=== PATIENT | female | born 2005 | race Two or more races ===

== ENCOUNTER 2024-11-03 11:25 | Outpatient (CLI) | payer MEDICAID, SELFPAY ==
--- NOTE | 2024-11-03 11:30 | XR_ITS ---
Examination: Biophysical profile, ultrasound Date and time of exam: November 03, 2024 1136 hours Onset lower pelvic pain today Technique: Multiple transabdominal sonographic images of the pelvis abdomen obtained. Attention is directed to the breathing movement, gross body movement, amniotic fluid volume and tone. Findings: Amniotic fluid index 9.4 cm Total biophysical profile is 8 of 8. breathing movement is 2. Gross body movement is 2. tone is 2. Qualitative amniotic fluid volume is 2 Impression: Biophysical profile is 8 of 8.
[2024-11-03 11:36] VITALS: BP 117/75; PULSE 79
[2024-11-03 11:37] VITALS: BMI 32.3
== END 2024-11-03 13:05 | disposition home or self-care (01) ==
LOC: S4S1 11:27 → S4SX 11:29
PROVIDERS: Referring Provider Advanced Practice Midwife; Visit Provider Advanced Practice Midwife
DX: Z34.03 Encounter for supervision of normal first pregnancy, third trimester (principal); Z36.9 Encounter for antenatal screening, unspecified; Z3A.40 40 weeks gestation of pregnancy
CPT/HCPCS: 59025; 76819

== ENCOUNTER 2024-11-05 17:10 | Observation (INO) | payer MEDICAID, SELFPAY ==
[2024-11-05 17:39] VITALS: BP 122/78; PULSE 83
[2024-11-05 17:47] VITALS: BMI 32.5
== END 2024-11-05 18:22 | disposition home or self-care (01) ==
PROVIDERS: Admitting Provider Advanced Practice Midwife; Visit Provider Advanced Practice Midwife
DX: O47.1 False labor at or after 37 completed weeks of gestation (principal); Z3A.40 40 weeks gestation of pregnancy
CPT/HCPCS: 59899

== ENCOUNTER 2024-11-10 01:56 | Inpatient (IN) | payer MEDICAID, SELFPAY ==
[2024-11-10] VITALS (96 sets, daily range): BP systolic 0–149; BP diastolic 0–93; PULSE 72–105; RESP 14–22; TEMP 36.6–37.5; O2SAT 90–100; BMI 33.3
--- NOTE | 2024-11-10 03:10 | XR_ITS ---
Examination: Complete OB ultrasound greater than 14 weeks Date and time of exam: November 10, 2024 0345 hrs. Indications: Post dates, late vaginal bleeding today Findings: Viable intrauterine single fetus with single amniotic sac presentation Vertex spine maternal left Cardiac motion 145 BPM Placenta anterior grade 2 Clinical: Insertion seen Amniotic fluid index 7.0 cm Ovaries obscured by bowel gas. Composite estimated gestational age based on BPD, head circumference, abdominal circumference, femur length is 41 weeks 2 days Estimated weight 4252 g. Survey of intracranial anatomy, spinal anatomy, abdominal anatomy, four-chamber heart performed with no abnormalities identified. Impression: Viable intrauterine gestation vertex presentation Estimated age 41 weeks 2 days Estimated weight 4252 g.
[2024-11-10] MEDS: MISOPROSTOL 50 mCg TABLET PO ×2 (03:20→08:16)
[2024-11-10 03:30] LABS: Collection Type, Urine Voided
[2024-11-10 03:31] LABS: Basophils % (Auto) 0 % (0-2.5); Eosinophils # (Auto) 0.1 Thou/mm3 (0.0-0.5); Eosinophils % (Auto) 1 % (0-10); Hematocrit 35.1 % (36.0-46.0); Hemoglobin 12.2 g/dL (12.0-16.0); Immature Granulocytes % (Auto) 3 % (0-0); Immature Granulocytes Auto 0.27 Thou/mm3 (0.00-0.00); Lymphocytes # (Auto) 2.2 Thou/mm3 (1.0-4.8); Lymphocytes % (Auto) 22 % (10-50); Mean Corpuscular HGB Conc 34.8 g/dl (31.0-37.0); Mean Corpuscular Hemoglobin 29.3 pg (25.0-35.0); Mean Corpuscular Volume 84 fL (80-100); Monocytes # (Auto) 0.7 Thou/mm3 (0.0-0.8); Monocytes % (Auto) 7 % (0-12); Neutrophils # (Auto) 6.8 Thou/mm3 (1.8-7.7); Neutrophils % (Auto) 67 % (37-80); Nucleated Red Blood Cell % 0 /100 WBC (0); Platelet Count 146 Thou/mm3 (140-440); RDW Standard Deviation 41.9 fL (36.4-46.3); Red Blood Count 4.16 Miln/mm3 (4.00-5.20); White Blood Count 10.2 Thou/mm3 (4.5-11.0)
[2024-11-10 03:33] LABS: Bilirubin,Urine Negative (Negative); Blood,Urine Negative (Negative); Clarity,Urine Clear (Clear/Hazy); Color,Urine Colorless (Lt Yel-Yel); Glucose, Urine Negative (Negative); Ketones,Urine Negative (Negative); Leukocyte Esterase,Urine Positive (Negative); Nitrite,Urine Negative (Negative); PH,Urine 6.5 (5.0-7.0); Protein,Urine Negative (Neg - Trace); RBC,Urine 1 /hpf (0-3); Specific Gravity,Urine 1.007 (1.001-1.035); Squamous Epithelial Cell,Urine 3 /hpf (0-5); Urobilinogen,Urine Negative mg/dL (0.0-1.0); WBC,Urine 1 /hpf (0-5)
[2024-11-10 03:56] LABS: Alanine Aminotransferase 18 U/L (10-49); Albumin, Serum 4.2 gm/dL (3.5-5.0); Albumin/Globulin Ratio 1.8 (1.2-2.2); Alkaline Phosphatase 299 U/L (46-116); Anion Gap 11 (7-16); Aspartate Amino Transferase 23 U/L (0-34); BUN/Creatinine Ratio 15 Ratio (12-20); Bilirubin,Total 0.2 mg/dL (0.3-1.2); Blood Urea Nitrogen 9 mg/dL (9-23); Calcium 9.3 mg/dL (8.3-10.6); Calcium (Corrected) 9.3 mg/dL (8.5-10.1); Carbon Dioxide 19.5 mMol/L (20.0-31.0); Chloride 106 mMol/L (98-107); Creatinine (Component) 0.6 mg/dL (0.6-1.3); Estimated Creatinine Clearance 176.7 mL/min (>60); Globulin 2.4 gm/dL (2.3-3.5); Glucose 91 mg/dL (74-106); Osmolality,Calculated 270 (275-295); Sodium 136 mMol/L (136-145); Total Protein 6.6 gm/dL (5.7-8.2); Uric Acid 5.1 mg/dL (3.1-7.8); eGFR > 60 See Note
[2024-11-10 04:09] LABS: Fibrinogen 585 mg/dL (175-375); INR 0.9 (0.9-1.3); Partial Thromboplastin Time 28.2 Seconds (22.0-36.0); Prothrombin Time 10.1 Seconds (9.0-12.2)
[2024-11-10 04:15] LABS: Syphilis Nonreactive (Nonreactive)
--- NOTE | 2024-11-10 05:03 | PRELIM_ITS ---
Obstetric ultrasound with Doppler. November 10, 2024 0345 hours Comparison: None.Findings:There is a gravid uterus with a live fetus in vertex presentation of mean gestational age 41 weeks and 2 days (b y biometry). cardiac activity is present at a heart rate of 145 beats per minute. The ambar centa is anterior in location, maturity grade 2. There is no evidence of placenta previa or retroplac ental hemorrhage. Amniotic fluid is adequate (NEENA = 7.0 cm). Estimated weight is 4252 grams+/- 69 grams. No abnormalities detected by Doppler.Impression:Gravid uterus with a single live fetus in v ertex presentation of mean gestational age 41 weeks 2 days. Report Electronically Signed By: Joao Clark 11/10/2024 5:02:13 AM [EST]
--- NOTE | 2024-11-10 09:54 | ESHP_ITS ---
Documentation for date of: 11/10/24 OB Labor/Induct. HPI History of Present Illness Chief complaint: induction/post dates : 1 Para: 0 Term pregnancies: 1 pregnancies: 0 Living children: 0 History of Abortions: Spontaneous and Elective: 0 History of Vaginal deliveries: 0 History of sections: No History of : No Date of last menstrual period: 03/25/24 JL: 10/31/24 Gestational Age (weeks): 41 Gestational Age (days): 3 Gestational age based on last menstrual period: 32 Indication for induction: post dates History of present illness: This is a 18-year-old 1 para 0 admit to labor and delivery for induction of labor. Patient's last period January 25, 2024. Estimated due date October 31, 2024. And this was confirmed in March by 9-week ultrasound and then a 20- week ultrasound and normal anatomy and normal growth. Denies social habits. Denies surgery. Eyes chronic illness. Patient is O+, antibody screen negative, RPR nonreactive, rubella immune, hepatitis B-, hep C negative, HIV negative, GC and Chlamydia were negative. 1 hour was normal. GBS negative. Negative NIPT and carrier screens. History of Present Dating criteria: LMP confirmed by 1st trimester US Adequate Care: Yes Ultrasounds: normal 1st trimester US and normal mid trimester US Obstetrical complications: none Medical complications: none Labs Labs: Negative: Hepatitis B, HIV, Chlamydia, Gonorrhea and Group Beta Strep Review of Systems Review of Systems Systems Reviewed: All systems reviewed, normal except as documented Past Medical History Surgical History SURGICAL: Negative Section Meds Home Medications and Allergies Home Medications ?Medication ?Instructions ?Recorded ?Confirmed ?Type vit no.133-ferrous 1 tab PO QDAY 06/25/24 11/10/24 History fumarate 28 mg-folic acid 800 mcg tablet () Allergies Allergy/AdvReac Type Severity Reaction Status Date / Time No Known Allergies Allergy Verified 11/10/24 02:16 OB Exam Physical Exam Vital signs: Temp Pulse Resp BP Pulse Ox O2 Del Method 98.5 F 80 16 104/62 97 Room Air 11/10/24 07:30 11/10/24 09:34 11/10/24 07:30 11/10/24 09:34 11/10/24 09:53 11/10/24 07:30 Narrative: Normal heart rate and rhythm. Lungs clear no wheezes. Vital signs are stable. Afebrile. Gravid uterus. Estimated weight 7 pounds 10 ounces. Vaginal exam on admission was long, 1, posterior 50% effaced. Vertex. heart rate category 1 with accelerations and moderate variability Detailed Labor and Delivery Exam Dilation (cm): 1 Effacement (%): 50 Cervix position: posterior station: -3 Consistency: medium Presentation: Vertex Cervical ripeness score: 3 Membranes: intact Baseline heart rate: 145 monitor accelerations: 15x15 monitor decelerations: None jail variability: Moderate (11-25) Contraction frequency (min): irregular Contraction duration (sec): 30 Tachysystole: No Contraction intensity: Mild OB Results Labs 11/10/24 02:36 11/10/24 02:36 Labs: Short CBC 11/10/24 Range/Units 02:36 WBC 10.2 (4.5-11.0) Thou/mm3 Hgb 12.2 (12.0-16.0) g/dL Hct 35.1 L (36.0-46.0) % Plt Count 146 (140-440) Thou/mm3 BMP 11/10/24 02:36 Sodium 136 Potassium 4.0 Chloride 106 Carbon Dioxide 19.5 L BUN 9 Creatinine 0.6 Glucose 91 Calcium 9.3 Liver Function 11/10/24 Range/Units 02:36 Total Bilirubin 0.2 L (0.3-1.2) mg/dL AST 23 (0-34) U/L ALT 18 (10-49) U/L Alkaline Phosphatase 299 H (46-116) U/L Albumin 4.2 (3.5-5.0) gm/dL Urine 11/10/24 Range/Units 02:12 Urine Color Colorless A (Lt Yel-Yel) Urine Clarity Clear (Clear/Hazy) Urine pH 6.5 (5.0-7.0) Ur Specific [place] 1.007 (1.001-1.035) Urine Protein Negative (Neg - Trace) Urine Glucose (UA) Negative (Negative) Impressions Impression: post date induction OB Assessment & Plan Assessment and Plan (1) Normal labor and delivery: Status: Acute Additional Plan Induction method: per misoprostol protocol Plan: induction, anticipate NVD, GBS prophylaxis tx and consult MD baez
[2024-11-10] MEDS: DINOPROSTONE 10 MG VAG.SUPP VAGINAL (12:55)
[2024-11-10] MEDS: CITRIC ACID/SODIUM CITR 15 ML UDC (BICITRA) 30 ML PO (15:59)
[2024-11-10] MEDS: FAMOTIDINE INJ 10 MG/ML VIAL 2 ML 20 MG IV (16:00)
[2024-11-10] MEDS: ceFAZolin/D5W 2 GM IV 2 GM/100 ML BAG IV (16:02)
--- NOTE | 2024-11-10 17:17 | PD.LDDELS ---
Data ([place]) Data Hx Section: No : 1 Para: 0 Term: 0 : 0 : 0 Delivery Data ([place]) Labor Data ROM Date: 11/10/24 ROM Time: 16:43 Rupture Type: AROM Amniotic Fluid: Thin Meconium Delivery Data Delivery Date: 11/10/24 Delivery Time: 16:44 Placenta Delivery Date: 11/10/24 Placenta Delivery Time: 16:44 Delivered by: Javed Cisneros Delivery nurse: Ania Carr Delivery Method Delivery: Delivery Type: Primary Anesthesia Type Primary Anesthesia: Spinal [place] Data ([place]) [place] Data Gender: Male Infant Weight Grams: 3610 1 Minute Total: 9 5 Minute Total: 9
--- NOTE | 2024-11-10 17:18 | ESOP_ITS ---
Operative Note - PARKING ENFORCEMENT SPECIALIST Procedure Date of procedure: 11/10/24 Procedure Performed: Primary low-transverse Indication: tachycardia was present for over 2 hours not responsive to resuscitative measurements at 3 cm of dilation Pre-Op diagnosis: IUP at 41 weeks. Nonreassuring heart tracing, remote from delivery Post-Op diagnosis: IUP at 41 weeks. Nonreassuring heart tracing, remote from delivery Viable male Anesthesia type: Spinal Procedure description: The patient was taken to the OR, spinal anesthesia was used and was adequate.? 2 g of Ancef were given for infection prophylaxis.? She was prepped and draped in dorsal supine position.? ?A Pfannenstiel skin incision was made with a scalpel Incision was carried down through the fascia with the Bovie and carried out to the fascia Peritoneum was? entered bluntly. The uterine incision was performed and extended bluntly.? Baby delivered from vertex presentation without any complications. ?Nose and mouth were suctioned on the operative field, cord was then clamped and cut.? The was handed off to the nurse.? Cord blood was obtained. IV oxytocin? was initiated to facilitate uterine contractions The uterus was exteriorized.? The inside of the uterus was then cleaned with a lap sponge to ensure complete removal of the placental membranes without complications. Then the hysterotomy was repaired along the uterine incision with 0 Vicryl in a locked fashion and? then in a running fashion with the same suture. 1g of TXA IV was given. The uterus was inspected in the abdomen and noted to be firm,? the uterine incision was reinspected with excellent hemostasis noted after 20.25mg of Hemabate and 0.2mg of methergine IM. Muscle layer was closed with 2-0 chromic in a running fashion Fascia layer was closed with an 0 Vicryl in a running fashion Subcutaneous layer was closed with plain gut Skin was close with 4-0 Monocryl Specimen: none Estimated blood loss (ml): 700 Findings: Normal uterus, tubes, ovaries Surgical staff Operation Date: 11/10/24 16:15 <No data on this case meets the specified criteria> Diagnosis Problem List Completed Was Problem List Reviewed/Reconciled?: Yes
[2024-11-10] MEDS: OXYTOCIN in NS 20 units 20 UNIT/1,000 ML BAG 125 UNIT IV (18:45)
[2024-11-10] MEDS: HYDROcodone/APAP 5/325 TABLET 1 TAB PO (20:33)
[2024-11-11] VITALS (9 sets, daily range): BP systolic 111–130; BP diastolic 68–80; PULSE 76–92; RESP 17–20; TEMP 36.9–37.6; O2SAT 97–98
[2024-11-11] MEDS: ACETAMINOPHEN 325 MG TABLET 650 MG PO (00:12)
[2024-11-11] MEDS: OXYTOCIN in NS 20 units 20 UNIT/1,000 ML BAG 125 UNIT IV (03:36)
[2024-11-11] MEDS: KETOROLAC INJ 30 MG/ML VIAL IVP (03:44)
[2024-11-11] MEDS: DiphenhydrAMINE INJ 50 MG/ML VIAL 12.5 MG IVP (03:49)
[2024-11-11 05:34] LABS: Basophils % (Auto) 0 % (0-2.5); Eosinophils % (Auto) 0 % (0-10); Hemoglobin 9.8 g/dL (12.0-16.0); Immature Granulocytes % (Auto) 1 % (0-0); Immature Granulocytes Auto 0.15 Thou/mm3 (0.00-0.00); Lymphocytes # (Auto) 1.3 Thou/mm3 (1.0-4.8); Lymphocytes % (Auto) 8 % (10-50); Mean Corpuscular Hemoglobin 29.3 pg (25.0-35.0); Mean Corpuscular Volume 84 fL (80-100); Monocytes % (Auto) 6 % (0-12); Neutrophils # (Auto) 13.7 Thou/mm3 (1.8-7.7); Neutrophils % (Auto) 85 % (37-80); Nucleated Red Blood Cell % 0 /100 WBC (0); Platelet Count 125 Thou/mm3 (140-440); RDW Standard Deviation 41.1 fL (36.4-46.3); Red Blood Count 3.34 Miln/mm3 (4.00-5.20); White Blood Count 16.2 Thou/mm3 (4.5-11.0)
--- NOTE | 2024-11-11 06:13 | PC.NURSE ---
11/22/24: Pt. had low grade fever 99-99.7 throughout the night. Cold wash cloths placed under both armpits, forehead, and behind the neck. Ice water and ice chips provided. x1 blanket removed, pt. only using sheet. Other vital signs/bleeding are stable.
[2024-11-11] MEDS: HYDROcodone/APAP 5/325 TABLET 1 TAB PO ×2 (06:27→17:26)
--- NOTE | 2024-11-11 07:46 | PD.LDPPPRG ---
Subjective Subjective Interval history: Patient at bedside. Afebrile, tolerating p.o., ambulating, voiding, positive flatus Exam Vital Signs Temp Pulse Resp BP Pulse Ox O2 Del Method 99.2 F 83 19 130/80 98 Room Air 11/11/24 05:30 11/11/24 05:30 11/11/24 05:30 11/11/24 05:30 11/11/24 05:30 11/11/24 05:30 Routine Abdominal Exam Comments: Soft, probably tender. Incision clean, dry, intact. Uterus firm, below the umbilicus Routine Exam Comments: Lochia similar to menses Routine Extremities Exam Comments: Homans' sign negative Objective Labs 11/11/24 05:00 11/10/24 02:36 Labs: Laboratory Results - last 24 hr 11/11/24 05:00 WBC 16.2 H D RBC 3.34 L Hgb 9.8 L D Hct 28.0 L MCV 84 MCH 29.3 MCHC 35.0 RDW Std Deviation 41.1 Plt Count 125 L Neut % (Auto) 85 H Lymph % (Auto) 8 L [place] % (Auto) 6 Eos % (Auto) 0 Baso % (Auto) 0 Neut # (Auto) 13.7 H Lymph # (Auto) 1.3 [place] # (Auto) 1.0 H Eos # (Auto) 0.0 Baso # (Auto) 0.0 Immature Gran # (Auto) 0.15 H Absolute Nucleated RBC 0.00 Immature Gran % 1 H Nucleated RBC % 0 Assessment & Plan Problem List (1) Normal labor and delivery: Status: Acute Assessment Comment Assessment comment: 18-year-old status post at term. Postop day 1 Plan Comment Plan Comment: Routine care. Encourage ambulation. Lovenox for DVT prophylaxis Time Spent With Patient Time: Total time spent is greater than 50% in coordination of care (as documented) at patient's floor/unit and/or counseling patient:
[2024-11-11] MEDS: ENOXAPARIN SOD INJ 40 MG/0.4 ML SYRINGE SC (08:57)
[2024-11-11] MEDS: SIMETHICONE 80 MG CHEW PO ×3 (12:04→21:45)
[2024-11-11] MEDS: IBUPROFEN TAB 400 MG TABLET 800 MG PO ×2 (12:04→21:44)
[2024-11-11] MEDS: Milk Of Magnesia Susp 30 ML UDC PO (12:04)
--- NOTE | 2024-11-11 12:07 | PC.NURSE ---
Md Cisneros called at 1207 regarding patient has not voided since having Emmanuel removed at 5:30am, Per MD straight cath patient and report back with output. @1227 MD made aware ouitput was 550mls. Per MD give patient 4 hours to void on her own.
[2024-11-12] MEDS: HYDROcodone/APAP 5/325 TABLET 1 TAB PO ×2 (00:30→15:21)
[2024-11-12] MEDS: Milk Of Magnesia Susp 30 ML UDC PO (00:30)
[2024-11-12 04:00] VITALS: BP 113/71; PULSE 88; RESP 20; TEMP 37; O2SAT 96
--- NOTE | 2024-11-12 07:11 | PC.NURSE ---
11/12/24 0710: Called MD Arboleda with results of PPDS. Pt. scored 14. Anything >13 protocol states to discuss results and provide education, notify OB provider, and order a social work specialist consult. All actions completed.
[2024-11-12 08:15] VITALS: BP 109/68; PULSE 86; RESP 17; TEMP 36.9; O2SAT 97
[2024-11-12] MEDS: ENOXAPARIN SOD INJ 40 MG/0.4 ML SYRINGE SC (08:15)
--- NOTE | 2024-11-12 08:43 | PD.LDPPPRG ---
Subjective Subjective Interval history: Delivery type: Patient doing well this morning. No acute complaints. Ambulating, tolerating p.o. and voiding without difficulty. HTN/Pre-Eclampsia screen: No chest pain, shortness of breath, headache, visual changes, epigastric or right upper quadrant pain. Breast-feeding, lochia diminishing. Bowel: Flatus+/ BM+ Exam Vital Signs Temp Pulse Resp BP Pulse Ox O2 Del Method 98.6 F 88 20 113/71 96 Room Air 11/12/24 04:00 11/12/24 04:00 11/12/24 04:00 11/12/24 04:00 11/12/24 04:00 11/12/24 04:00 Constitutional Constitutional: no acute distress Routine HEENT Exam Head: Present normocephalic and atraumatic Eye: Present EOMI and PERRL ENT: Present mucous membranes moist Routine Neck Exam Neck: Present supple and trachea midline Routine Respiratory Exam Respiratory: Present chest non-tender, lungs clear, normal breath sounds and no resp distress Routine Cardiovascular Exam Cardiovascular: Present RRR Routine Abdominal Exam Abdominal: Present soft and normoactive bowel sounds Routine Extremities Exam Extremities: Present full ROM Routine Skin Exam Skin: Present intact, dry and warm Routine Neurological Exam Neurological: Present alert, oriented X3 and CN II-XII intact Routine Psychiatric Exam Psychiatric: Present normal affect and normal thought process Objective Labs 11/11/24 05:00 11/10/24 02:36 Assessment & Plan Problem List (1) Normal labor and delivery: Status: Acute (2) delivery delivered: Status: Acute Assessment and plan: PPD/POD#2 1. Continue routine care 2. Transition to PO meds. 3. Encourage to ambulate/ breast-feed 4. Anticipate discharge home today. Time Spent With Patient Time: Total time spent is greater than 50% in coordination of care (as documented) at patient's floor/unit and/or counseling patient:
--- NOTE | 2024-11-12 08:44 | ESDS_ITS ---
DS: Providers Provider Date of admission: 11/10/24 01:56 Primary care physician: Seven Mcleod MD Admitting Provider: Cody Arboleda MD Attending Provider on Admission: Javed Cisneros MD Consults: 11/10/24 17:15 Referral Routine Comment: Attending Provider on DC: Cody Arboleda MD Discharging Provider: Cody Arboleda MD DS: Diagnosis Discharge Diagnosis (1) delivery delivered: Status: Acute Problem List Completed Was Problem List Reviewed/Reconciled?: Yes Summary/Hosp Course Brief History: This is a 18-year-old 1 para 0 admit to labor and delivery for induction of labor. Patient's last period January 25, 2024. Estimated due date October 31, 2024. And this was confirmed in March by 9-week ultrasound and then a 20- week ultrasound and normal anatomy and normal growth. Denies social habits. Denies surgery. Eyes chronic illness. Patient is O+, antibody screen negative, RPR nonreactive, rubella immune, hepatitis B-, hep C negative, HIV negative, GC and Chlamydia were negative. 1 hour was normal. GBS negative. Negative NIPT and carrier screens. Peripartum Data Procedures: Procedures Operation Date: 11/10/24 16:15 Actual Procedure Side Surgeon p in OB Not Applicable Javed Cisneros MD Time Spent with Patient Time attestation: Total time spent providing and/or coordinating discharge services: Exam Vital Signs Temp Pulse Resp BP Pulse Ox O2 Del Method 98.6 F 88 20 113/71 96 Room Air 11/12/24 04:00 11/12/24 04:00 11/12/24 04:00 11/12/24 04:00 11/12/24 04:00 11/12/24 04:00 Discharge Plan Plan Patient Disposition: HOME (Self Care) Patient condition on transfer: Stable Prescriptions/Referrals Prescriptions/Med Rec: New hydrocodone-acetaminophen 5-325 mg Tablet 1 tab PO Q6H MDD 4 PRN (Reason: Patient rated pain 7 to 8) 5 Days Qty: 20 0RF ibuprofen 600 mg tablet 600 mg PO Q6H PRN (Reason: fever or pain) 10 Days Qty: 40 0RF Continued 28-800 mg-mcg Tablet 1 tab PO QDAY Referrals: Seven Mcleod MD [Primary Care Provider] - Cdoy Arboleda MD [Physician] - Patient/Caregiver Discharge Instructions Meds to Beds: Yes Education Materials: Depression, Breast Care After , : Caring for Yourself, C Section Dc, After a , Feel Healthy After Print Language: Pakistani Stand Alone Forms: [facility] Award Info., Patient Portal Info Letter, DC from Surgery Planned Discharge Date 11/12/24
--- NOTE | 2024-11-12 11:31 | PC.SS ---
TASSEL SNIPPER conducted bedside contact with the patient to address nursing referral indicating patient possessed elevated score on post- depression screening. TASSEL SNIPPER introduced self, role and basis for contact. TASSEL SNIPPER utilized translation services line. Present with patient was Zeeshan REMY. Patient gave permission for FOB to be present during discussion. Patient informed TASSEL SNIPPER that she did not realize that she possessed elevated score on depression screening. Patient denied currently possessing depression. Per patient, does not possess a history of mental health. Patient denies history of psychiatric services to include hospitizlation. [place], [place]; is the patient?s first child. Patient described patrick and excitement over of son. TASSEL SNIPPER observed FOB and MOB interacting with . FOB holding and caring for while TASSEL SNIPPER conversed with MOB. Patient is not aligned with WIC, SNAP or TANF. TASSEL SNIPPER provided information for resources if patient decides to proceed with applying for resources. Patient denies history of alcohol/drug use. Patient denies CWS intervention. Patient denies episodes of domestic violence. delivered via . Patient plans on the . Argelia Carreno provided OB services. Patient states consistency with OB appointments. Patient has access to appropriate supplies and equipment. FOB will provide transportation upon discharge. Patient describes possessing support system consisting of FOB, sisters and extended family. No further intervention required at this time, social media editor will be available to address any further concerns. Community resources provided to the patient. TASSEL SNIPPER updated bedside nurse.
[2024-11-12 11:50] VITALS: BP 111/72; PULSE 95; RESP 17; TEMP 37.2; O2SAT 97
--- NOTE | 2024-11-12 12:07 | PC.NURSE ---
Patient cleared by [place] in social services designee
[2024-11-12 15:00] VITALS: BP 116/67; PULSE 95; RESP 18; TEMP 37.4; O2SAT 99
== END 2024-11-12 19:30 | disposition home or self-care (01) | DRG 540 ==
LOC: S4SX 16:02 → S4NX 16:19
PROVIDERS: Advanced Practice Midwife; Admitting Provider Obstetrics & Gynecology; PCP Family Medicine; Visit Provider Obstetrics & Gynecology
PROC: 10D00Z1 Extraction of Products of Conception, Low, Open Approach (ICD-10-PCS; CPT 59514; principal; 2024-11-10 16:00)
DX: O48.0 Post-term pregnancy (principal); Z37.0 Single live birth; O77.0 Labor and delivery complicated by meconium in amniotic fluid; O76 Abnormality in fetal heart rate and rhythm complicating labor and delivery; Z3A.41 41 weeks gestation of pregnancy
CPT/HCPCS: 36415; 76805; 80053; 81001; 84550; 85025; 85384; 85610; 85730; 86780; 86850; 86900; 86901; A4649; J0689; J1100; J1200; J1650; J1885; J2210; J2274; J2371; J2405; J2590; J2704; J3490; A9270; J0690; J2270